=== PATIENT | female | born 1995 | race Two or more races ===

== ENCOUNTER 2017-08-26 15:11 | Observation (INO) | payer MEDICAID ==
[~2017-08-26] VITALS: Ht 167.6 cm; Wt 122.0 kg
[2017-08-26 16:04] VITALS: BP 124/70
[2017-08-26] MEDS: TERBUTALINE SULFATE 1 MG/ML 1ML VIAL SC SCH ×3 (17:50→18:35)
[2017-08-26] MEDS ORDERED: LACTATED RINGER'S 1,000 ML IV ONE (19:00)
== END 2017-08-26 19:35 | disposition home or self-care (01) | DRG 566 ==
LOC: ER 15:19 → LDRP 15:20 → ER 16:17 → LDRP 16:17
PROVIDERS: ADMIT Specialist; ATTEND Specialist
DX: O26.893 Other specified pregnancy related conditions, third trimester (principal); F41.9 Anxiety disorder, unspecified; O99.343 Other mental disorders complicating pregnancy, third trimester; M25.562 Pain in left knee; M25.561 Pain in right knee; O99.513 Diseases of the respiratory system complicating pregnancy, third trimester; J45.909 Unspecified asthma, uncomplicated; V43.62XA Car passenger injured in collision with other type car in traffic accident, initial encounter; Y92.410 Unspecified street and highway as the place of occurrence of the external cause; Z3A.34 34 weeks gestation of pregnancy; Y93.89 Activity, other specified; Y99.8 Other external cause status
CPT/HCPCS: 59025; 76815; 81002; 96372; G0378; J3105